=== PATIENT | female | born 1945 | race Native Hawaiian/Other Pacific Islander ===

== ENCOUNTER 2016-10-31 19:40 | Emergency (ER) | payer OTHER ==
[~2016-10-31] VITALS: Ht 165.1 cm; Wt 87.5 kg
[~2016-10-31 19:40] MED LIST: ACCOLATE10 MG PO; ALPR0.2566 PO; CLON1TAB18 PO; EZET10TA13 PO; FERROUS SULF325 M1 PO; ISOS30TA17 PO; LEVO0.0529 PO; NITROSTAT0.4 MG SL; OMEP40CA PO; PRILOSEC20 MG PO; REQUIP1 MG PO; VIIBRYD40 MG PO
[2016-10-31] MEDS ORDERED: CELEXA40 MG PO (20:10)
[2016-10-31] MEDS ORDERED: PANT40TA PO (20:10)
[2016-10-31] MEDS ORDERED: POTASSIUM CHLO20 MEQ PO (20:11)
[2016-10-31] MEDS ORDERED: CLON1TAB18 PO (20:12)
[2016-10-31] MEDS ORDERED: ANTI-GAS180 MG PO (20:13)
[2016-10-31] MEDS ORDERED: MAG6464 MG PO (20:13)
[2016-10-31 20:19] LABS: PLATELET COUNT 216 K/uL (152-353)
[2016-10-31 20:26] LABS: POTASSIUM 3.2 mmol/L (3.6-5.2); SODIUM 135 mmol/L (136-145)
[2016-10-31 20:33] LABS: PARTIAL THROMBOPLASTIN TIME 24.2 SECONDS (24.5-33.6)
[2016-10-31 21:26] VITALS: BP 114/78; TEMP 98.4
== END 2016-10-31 21:27 | disposition home or self-care (01) ==
LOC: ED 19:40 → EDBD 19:40 → ED 21:27
DX: K44.9 Diaphragmatic hernia without obstruction or gangrene (principal); R07.89 Other chest pain
CPT/HCPCS: 36415; 80053; 82550; 84484; 85027; 85610; 85730; 86318; 99283

== ENCOUNTER 2017-02-15 20:49 | Emergency (ER) | payer OTHER ==
[~2017-02-15] VITALS: Ht 165.1 cm; Wt 86.2 kg
[~2017-02-15 20:49] MED LIST changes: +ANTI-GAS180 MG PO; +CELEXA40 MG PO; +MAG6464 MG PO; +PANT40TA PO; +POTASSIUM CHLO20 MEQ PO
[2017-02-15 22:56] LABS: PLATELET COUNT 210 K/uL (152-353)
[2017-02-15 23:05] LABS: POTASSIUM 3.4 mmol/L (3.6-5.2); SODIUM 135 mmol/L (136-145)
[2017-02-15 23:56] VITALS: BP 136/72; TEMP 98.7
== END 2017-02-15 23:57 | disposition home or self-care (01) ==
LOC: EDBD 20:49 → ED 20:49
PROVIDERS: Specialist
DX: K52.89 Other specified noninfective gastroenteritis and colitis (principal)
CPT/HCPCS: 80048; 83735; 84100; 85027; 99284; J3490

== ENCOUNTER 2017-04-16 10:32 | Outpatient (CLI) | payer OTHER | END 2017-04-16 19:06 | disposition home or self-care (01) | LOC: RESP 10:32 | DX: R06.02 Shortness of breath (principal) ==

== ENCOUNTER 2017-05-04 21:59 | Observation (INO) | payer OTHER ==
[~2017-05-04] VITALS: Ht 170.2 cm; Wt 87.6 kg
[2017-05-04 22:10] VITALS: BP 132/73; TEMP 97.8
[2017-05-04 22:27] LABS: PLATELET COUNT 257 K/uL (152-353)
[2017-05-04] MEDS ORDERED: ZANTAC300 MG PO (22:37)
[2017-05-04 22:38] LABS: POTASSIUM 3.5 mmol/L (3.6-5.2); SODIUM 134 mmol/L (136-145)
[2017-05-04] MEDS ORDERED: FLUTICASONE50 MCG (22:38)
[2017-05-04] MEDS ORDERED: MECLIZINE25 MG PO (22:38)
[2017-05-04] MEDS ORDERED: FORTIFY DAILY P1 CAP PO (22:39)
[2017-05-04] MEDS ORDERED: DEXL60CA4 PO (22:39)
[2017-05-04 22:40] LABS: PARTIAL THROMBOPLASTIN TIME 23.7 SECONDS (24.5-33.6)
[2017-05-05 01:10] VITALS: BP 95/52; TEMP 98.6
[2017-05-05 01:30] VITALS: BP 95/52; TEMP 98.6; Ht 170.2 cm; Wt 87.6 kg
[2017-05-05 04:00] VITALS: BP 141/61; TEMP 98.2
--- NOTE | 2017-05-05 06:38 | NUR ---
05/05/17 0030: RECEIVED PT TO ROOM 1109. PT FROM ER BY WHEELCHAIR. DIAGNOSIS OF CHEST PAIN.
[2017-05-05 08:00] VITALS: BP 102/51; TEMP 98.1
[2017-05-05 12:00] VITALS: BP 100/45; TEMP 98.1
--- NOTE | 2017-05-05 16:15 | NUR ---
DC INSTRUCTIONS GIVEN TO PT. PT VERBALIZED UNDERSTANDING. INSTRUCTED PT ON FOLLOW UP APPT. PT VERBALIZED UNDERSTANDING. IV DC'D WITH CANNULA INTACT. SITE CARE PROVIDED
--- NOTE | 2017-05-05 17:11 | NUR ---
PT LEFT VIA WC WITH FAMILY.
== END 2017-05-05 17:25 | disposition home or self-care (01) ==
LOC: ED 21:59 → MED/SURG 23:34
PROVIDERS: ADMIT Specialist
DX: R07.89 Other chest pain (principal); I10 Essential (primary) hypertension; E03.8 Other specified hypothyroidism
CPT/HCPCS: 36415; 80053; 82550; 84443; 84484; 85027; 85610; 85730; 86318; 93005; 96361; 96372; 96374; 99220; 99284; G0378; J1650; J2270

== ENCOUNTER 2017-08-19 16:16 | Outpatient (CLI) | payer OTHER ==
[~2017-08-19 16:16] MED LIST changes: +DEXL60CA4 PO; +FLUTICASONE50 MCG; +FORTIFY DAILY P1 CAP PO; +MECLIZINE25 MG PO; +ZANTAC300 MG PO
[2017-08-19 16:38] LABS: PLATELET COUNT 215 K/uL (152-353)
[2017-08-19 16:51] LABS: POTASSIUM 3.7 mmol/L (3.6-5.2); SODIUM 136 mmol/L (136-145)
== END 2017-08-19 17:20 | disposition home or self-care (01) ==
LOC: LABW 16:16
PROVIDERS: Physician Assistant
DX: R21 Rash and other nonspecific skin eruption (principal); R23.3 Spontaneous ecchymoses
CPT/HCPCS: 36415; 80053; 85027

== ENCOUNTER 2018-02-24 15:31 | Outpatient (CLI) | payer OTHER ==
[2018-02-24 16:09] LABS: PLATELET COUNT 237 K/uL (152-353)
[2018-02-24 16:32] LABS: POTASSIUM 3.5 mmol/L (3.6-5.2)
== END 2018-02-24 22:06 | disposition home or self-care (01) ==
LOC: LABW 15:31 → EDBD 15:31 → LABW 22:06
PROVIDERS: Physician Assistant
DX: F41.1 Generalized anxiety disorder (principal); D51.0 Vitamin B12 deficiency anemia due to intrinsic factor deficiency; F33.1 Major depressive disorder, recurrent, moderate
CPT/HCPCS: 36415; 80053; 82306; 82607; 83735; 84439; 84443; 85027

== ENCOUNTER 2018-05-19 12:26 | Outpatient (CLI) | payer OTHER | END 2018-05-19 19:20 | disposition home or self-care (01) | LOC: LABW 12:26 → EDBD 12:26 → LABW 19:20 | DX: N39.0 Urinary tract infection, site not specified (principal) | CPT/HCPCS: 87088 ==

== ENCOUNTER 2018-06-08 08:26 | Observation (INO) | payer OTHER ==
[~2018-06-08] VITALS: Ht 167.6 cm; Wt 85.5 kg
[2018-06-08 08:19] VITALS: BP 141/70; TEMP 97.45
[2018-06-08 08:47] LABS: PLATELET COUNT 272 K/uL (152-353)
[2018-06-08 08:53] LABS: POTASSIUM 3.1 mmol/L (3.6-5.2); SODIUM 141 mmol/L (136-145)
[2018-06-08 16:14] VITALS: BP 114/50; TEMP 97.8; Ht 167.6 cm; Wt 85.5 kg
[2018-06-08 20:24] VITALS: BP 130/64; TEMP 99
[2018-06-09 00:27] VITALS: BP 125/64; TEMP 98.8
[2018-06-09 05:10] VITALS: BP 126/69; TEMP 98.4
[2018-06-09 06:36] LABS: POTASSIUM 3.7 mmol/L (3.6-5.2)
[2018-06-09 08:00] VITALS: BP 147/72; TEMP 97.6
== END 2018-06-09 09:35 | disposition home or self-care (01) ==
LOC: ED 08:26 → MED/SURG 10:24
PROVIDERS: Family Medicine; ADMIT Internal Medicine
DX: R07.89 Other chest pain (principal); I25.10 Atherosclerotic heart disease of native coronary artery without angina pectoris; E03.8 Other specified hypothyroidism
CPT/HCPCS: 36415; 80048; 80053; 81000; 82550; 83735; 84484; 85027; 93005; 96365; 96367; 99220; 99283; G0378

== ENCOUNTER 2018-08-08 08:10 | Emergency (ER) | payer OTHER ==
[~2018-08-08] VITALS: Ht 167.6 cm; Wt 85.3 kg
[2018-08-08 08:51] LABS: PLATELET COUNT 258 K/uL (152-353)
[2018-08-08 09:10] LABS: POTASSIUM 3.1 mmol/L (3.6-5.2); SODIUM 140 mmol/L (136-145)
[2018-08-08 10:54] VITALS: BP 118/62; TEMP 97.6
== END 2018-08-08 10:58 | disposition home or self-care (01) ==
LOC: ED 08:10
PROVIDERS: Emergency Medicine
DX: R07.89 Other chest pain (principal); E87.6 Hypokalemia; I49.3 Ventricular premature depolarization
CPT/HCPCS: 36415; 80053; 81000; 82550; 84484; 85027; 93005; 96374; 99284; J1885

== ENCOUNTER 2018-08-30 17:04 | Outpatient (CLI) | payer OTHER ==
[2018-08-30 17:35] LABS: POTASSIUM 3.5 mmol/L (3.6-5.2)
== END 2018-08-30 21:27 | disposition home or self-care (01) ==
LOC: LABW 17:04
PROVIDERS: Internal Medicine
DX: E87.6 Hypokalemia (principal)
CPT/HCPCS: 36415; 80048; 83735

== ENCOUNTER 2019-01-18 08:05 | Outpatient (CLI) | payer OTHER | END 2019-01-18 19:41 | disposition home or self-care (01) | LOC: CT 08:05 | DX: R10.84 Generalized abdominal pain (principal) | CPT/HCPCS: 36415; 82565; 84520; Q9963 ==

== ENCOUNTER 2019-02-23 13:42 | Emergency (ER) | payer OTHER ==
[~2019-02-23] VITALS: Ht 165.1 cm; Wt 79.4 kg
[2019-02-23 13:50] VITALS: TEMP 97.9
[2019-02-23 14:50] LABS: PLATELET COUNT 279 K/uL (152-353)
[2019-02-23 15:02] LABS: POTASSIUM 3.9 mmol/L (3.6-5.2); SODIUM 135 mmol/L (136-145)
[2019-02-23 18:00] VITALS: BP 139/49
== END 2019-02-23 18:00 | disposition home or self-care (01) ==
LOC: ED 13:42
PROVIDERS: Emergency Medicine
DX: E86.0 Dehydration (principal)
CPT/HCPCS: 36415; 80053; 81000; 82550; 83735; 84439; 84443; 84484; 85027; 96365; 99284

== ENCOUNTER 2019-05-04 16:15 | Outpatient (CLI) | payer OTHER | END 2019-05-04 23:08 | disposition home or self-care (01) | LOC: LAB 16:15 | DX: R30.0 Dysuria (principal) | CPT/HCPCS: 87077; 87086; 87088; 87186 ==

== ENCOUNTER 2019-05-15 14:27 | Outpatient (CLI) | payer OTHER | END 2019-05-16 05:54 | disposition home or self-care (01) | LOC: US 14:27 | DX: N39.0 Urinary tract infection, site not specified (principal) | CPT/HCPCS: 87086; 87088 ==

== ENCOUNTER 2019-06-15 09:46 | Outpatient (CLI) | payer OTHER ==
[2019-06-15 10:25] LABS: POTASSIUM 3.7 mmol/L (3.6-5.2)
[2019-06-15 10:44] LABS: PLATELET COUNT 285 K/uL (152-353)
== END 2019-06-15 22:35 | disposition home or self-care (01) ==
LOC: LABW 09:46
PROVIDERS: Internal Medicine
DX: E03.8 Other specified hypothyroidism (principal); N39.0 Urinary tract infection, site not specified
CPT/HCPCS: 36415; 80053; 80061; 81000; 84439; 84443; 85027

== ENCOUNTER 2019-09-18 15:15 | Inpatient (IN) | payer OTHER ==
[~2019-09-18] VITALS: Ht 165.1 cm; Wt 82.6 kg
--- NOTE | 2019-09-18 15:14 | NUR ---
PT ARRIVED ON MED-SURG A DIRECT ADMIT FROM SILVIA MAHER. PT WAS BROUGHT A W/C AND TRANSPORTED TO ROOM 1106. ADMISSIONS CAME TO ROOM TO REGISTER PT. PT ORIENTED TO ROOM AND CALL LIGHT. VITALS SIGNS OBTAINED AND PT PLACED IN GOWN. NAD NOTED AND CALL LIGHT WITHIN REACH. WILL CONT TO MONITOR.
[2019-09-18 15:57] VITALS: BP 121/64; TEMP 97.7; Ht 165.1 cm; Wt 82.6 kg
[2019-09-18 16:12] LABS: PLATELET COUNT 218 K/uL (152-353)
[2019-09-18] MEDS ORDERED: MECLIZINE 2525 MG PO (16:29)
[2019-09-18 16:31] LABS: POTASSIUM 3.7 mmol/L (3.6-5.2); SODIUM 136 mmol/L (136-145)
[2019-09-18] MEDS ORDERED: ISOS30TA17 PO (16:31)
[2019-09-18] MEDS ORDERED: CLONAZEP ODT1 MG PO (16:33)
[2019-09-18] MEDS ORDERED: EZET10TA13 PO (16:34)
[2019-09-18] MEDS ORDERED: DICYCLOMINE HYD10 MG PO (16:35)
[2019-09-18] MEDS ORDERED: LAMICTAL100 MG PO (16:38)
[2019-09-18 19:39] VITALS: BP 125/56; TEMP 98.5
[2019-09-19] VITALS (7 sets, daily range): BP systolic 109–139; BP diastolic 53–80; TEMP 98.4–99.4
[2019-09-20 04:04] VITALS: BP 113/58; TEMP 98.6
[2019-09-20 08:00] VITALS: BP 129/54; TEMP 98.4
--- NOTE | 2019-09-20 08:15 | NUR ---
MADE PATIENT AWARE THAT THE STAFF NEEDED TO COLLECT A STOOL SAMPLE. SPECIMEN HAT PROVIDED IN RESTROOM. PATIENT VERBALIZED UNDERSTANDING.
--- NOTE | 2019-09-20 08:55 | NUR ---
PT COMPLAINS OF NAUSEA AT THIS TIME. WILL ADMIN PRN ZOFRAN. NO VOMITING SEEN OR VOICED AT THIS TIME. IV FLUIDS INFUSING WITHOUT DIFFICULTY. WILL CONTINUE TO MONITOR.
--- NOTE | 2019-09-20 11:30 | NUR ---
PT MOVED SPECIMEN HAT IN BATHROOM AND HAD BOWEL MOVEMENT IN COMMODE. RE-EDUCATED PATIENT THAT WE NEEDED A STOOL SAMPLE. PATIENT VERBALIZED UNDERSTANDING.
[2019-09-20 12:00] VITALS: BP 110/60; TEMP 97.4
[2019-09-20 16:00] VITALS: BP 123/54; TEMP 98.2
[2019-09-20 19:56] VITALS: BP 111/66; TEMP 97.9
[2019-09-21] VITALS: BP 141/80; TEMP 97.8
[2019-09-21 03:53] VITALS: BP 125/59; TEMP 98.1
[2019-09-21 08:00] VITALS: BP 132/64; TEMP 98.4
[2019-09-21 12:00] VITALS: BP 107/51; TEMP 98.3
[2019-09-21] MEDS ORDERED: CODELIQ8 PO (15:18)
[2019-09-21] MEDS ORDERED: AZIT250T3 PO (15:19)
[2019-09-21 16:00] VITALS: BP 114/55; TEMP 97.8
--- NOTE | 2019-09-21 17:15 | NUR ---
PATIENT GIVEN DISCHARGE INSTRUCTIONS WITH VERBAL UNDERSTANDING NOTED. PATIENT NOTIFIED THAT HER RX MEDICATIONS WERE SENT TO HER PHARMACY. PATIENT EDUCATED TO TAKE ALL ANTIBIOTICS DIRECTED. PATIENT EDUCATED TO FOLLOW UP WITH HER PCP. PATIENT EDUCATED TO CALL THE HOSPITAL IF SHE HAD ANY QUESTIONS REGARDING HER DISCHARGE INSTRUCTIONS. PATIENTS IV DISCONTINUE TO THE RIGHT WRIST WITH TIP INTACT. PATIENT TOLERATED WELL. THIS NURSE AMBULATED WITH PATIENT TO POV WITHOUT INCIDENT. PATIENT LEFT IN NO ACUTE DISTRESS.
== END 2019-09-21 17:04 | disposition home or self-care (01) | DRG 152 ==
LOC: MED/SURG 15:15
PROVIDERS: ADMIT Family Medicine
DX: J06.9 Acute upper respiratory infection, unspecified (principal); J18.8 Other pneumonia, unspecified organism; K22.70 Barrett's esophagus without dysplasia; E03.8 Other specified hypothyroidism; I10 Essential (primary) hypertension; G25.81 Restless legs syndrome; F41.8 Other specified anxiety disorders; R62.7 Adult failure to thrive; I25.10 Atherosclerotic heart disease of native coronary artery without angina pectoris
CPT/HCPCS: 36415; 80053; 81000; 82550; 83605; 83880; 84484; 85027; 87040; 87502; 87651; 87899; 93005; 94760; 96361; 96365; 96375; J0696; J1885; J2920; J2930

== ENCOUNTER 2019-12-15 10:39 | Emergency (ER) | payer OTHER ==
[~2019-12-15] VITALS: Ht 165.1 cm; Wt 77.6 kg
[~2019-12-15 10:39] MED LIST changes: +AZIT250T3 PO; +CLONAZEP ODT1 MG PO; +CODELIQ8 PO; +DICYCLOMINE HYD10 MG PO; +LAMICTAL100 MG PO; +MECLIZINE 2525 MG PO
[2019-12-15 10:54] VITALS: BP 117/77; TEMP 97
[2019-12-15 11:48] LABS: PLATELET COUNT 220 K/uL (152-353)
[2019-12-15 11:56] LABS: POTASSIUM 3.6 mmol/L (3.6-5.2)
== END 2019-12-15 14:16 | disposition home or self-care (01) ==
LOC: ED 10:39
PROVIDERS: Family Medicine
DX: M79.604 Pain in right leg (principal); M16.0 Bilateral primary osteoarthritis of hip
CPT/HCPCS: 80053; 81000; 85027; 85379; 99283

== ENCOUNTER 2020-04-15 10:07 | Emergency (ER) | payer OTHER ==
[~2020-04-15] VITALS: Ht 165.1 cm; Wt 72.6 kg
[2020-04-15 10:07] VITALS: BP 112/63; TEMP 97.6
[2020-04-15 11:09] LABS: PLATELET COUNT 260 K/uL (152-353)
[2020-04-15 11:14] LABS: POTASSIUM 3.3 mmol/L (3.6-5.2); SODIUM 141 mmol/L (136-145)
== END 2020-04-15 12:15 | disposition home or self-care (01) ==
LOC: ED 10:07
PROVIDERS: Family Medicine
DX: I95.9 Hypotension, unspecified (principal); E86.0 Dehydration
CPT/HCPCS: 80053; 81000; 82550; 82553; 83605; 84484; 85027; 93005; 96360; 99284

== ENCOUNTER 2020-09-19 11:11 | Outpatient (CLI) | payer OTHER | END 2020-09-19 19:03 | disposition home or self-care (01) | LOC: CT 11:11 | PROVIDERS: ATTEND Internal Medicine Gastroenterology | DX: R10.84 Generalized abdominal pain (principal) | CPT/HCPCS: 36415; 82565; 84520; Q9963 ==

== ENCOUNTER 2021-04-30 14:52 | Outpatient (CLI) | payer OTHER | END 2021-04-30 21:42 | disposition home or self-care (01) | LOC: US 14:52 | PROVIDERS: ATTEND Specialist | DX: M79.605 Pain in left leg (principal) ==

== ENCOUNTER 2021-07-31 17:11 | Emergency (ER) | payer OTHER ==
[~2021-07-31] VITALS: Ht 165.1 cm; Wt 72.6 kg
[2021-07-31 17:58] LABS: PLATELET COUNT 243 K/uL (152-353)
[2021-07-31 18:22] LABS: PARTIAL THROMBOPLASTIN TIME 24.1 SECONDS (24.5-33.6)
[2021-07-31 18:29] LABS: POTASSIUM 3.1 mmol/L (3.6-5.2)
[2021-07-31 20:45] VITALS: BP 132/77; TEMP 97.5
== END 2021-07-31 20:55 | disposition home or self-care (01) ==
LOC: ED 17:11
PROVIDERS: Emergency Medicine
DX: E87.6 Hypokalemia (principal); R42 Dizziness and giddiness; R53.81 Other malaise; R06.02 Shortness of breath; R07.89 Other chest pain; G89.29 Other chronic pain
CPT/HCPCS: 80053; 81000; 83880; 84484; 85027; 85379; 85610; 85730; 93005; 96360; 96365; 99284

== ENCOUNTER 2021-08-08 13:59 | Observation (INO) | payer OTHER ==
[~2021-08-08] VITALS: Ht 165.1 cm; Wt 78.5 kg
[2021-08-08 15:23] LABS: PLATELET COUNT 244 K/uL (152-353)
[2021-08-08 18:06] VITALS: BP 116/77; TEMP 98.6; Ht 165.1 cm; Wt 78.5 kg
[2021-08-08] MEDS ORDERED: ONDA4TAB3 PO (18:57)
[2021-08-08] MEDS ORDERED: POTASSIUM CHLO20 ME1 PO (18:58)
[2021-08-08] MEDS ORDERED: CALCIUM600 M2 PO (18:59)
[2021-08-08] MEDS ORDERED: MAG OXIDE400 MG PO (19:00)
[2021-08-08] MEDS ORDERED: ANTIHISTAMIN25 MG PO (19:01)
[2021-08-08] MEDS ORDERED: ROPINIROLE HYDRO1 MG PO (19:02)
[2021-08-08] MEDS ORDERED: FAMOTIDINE40 MG PO (19:04)
[2021-08-08] MEDS ORDERED: NITR0.4S2 SL (19:05)
[2021-08-08] MEDS ORDERED: MECLIZINE25 MG PO (19:06)
[2021-08-08] MEDS ORDERED: DEXILANT60 M1 PO (19:06)
[2021-08-08] MEDS ORDERED: EZETIMIBE10 MG PO (19:07)
[2021-08-08] MEDS ORDERED: TIROSINT50 MCG PO (19:08)
[2021-08-08] MEDS ORDERED: ISOSORB MONO20 MG PO (19:09)
[2021-08-08] MEDS ORDERED: ESCITALOPRAM10 MG PO (19:10)
[2021-08-08] MEDS ORDERED: CLON1TAB18 PO (19:10)
[2021-08-08 20:26] VITALS: BP 126/62; TEMP 97.9
[2021-08-08 23:52] VITALS: BP 121/56; TEMP 98.7
[2021-08-09 04:17] VITALS: BP 115/39; TEMP 97.5
[2021-08-09 08:00] VITALS: BP 98/53; TEMP 98.3
[2021-08-09 11:21] LABS: PLATELET COUNT 195 K/uL (152-353)
[2021-08-09 11:44] LABS: POTASSIUM 4.4 mmol/L (3.6-5.2)
[2021-08-09 12:00] VITALS: BP 98/53; TEMP 98.3
== END 2021-08-09 15:10 | disposition home or self-care (01) ==
LOC: MED/SURG 13:59
PROVIDERS: ADMIT Family Medicine; ATTEND Family Medicine
DX: J18.8 Other pneumonia, unspecified organism (principal); Z20.828 Contact with and (suspected) exposure to other viral communicable diseases; I10 Essential (primary) hypertension; E03.8 Other specified hypothyroidism; E87.6 Hypokalemia; R06.09 Other forms of dyspnea
CPT/HCPCS: 36415; 80053; 82550; 83735; 83880; 84100; 84443; 84484; 85027; 85379; 87040; 87077; 87185; 87186; 87205; 87635; 90686; 93005; 94640; 94664; 94760; 96360; 96366; 96367; 99220; G0378; G0379; J0456; J0696; J2405; U0003

== ENCOUNTER 2021-09-01 15:38 | Outpatient (CLI) | payer OTHER ==
[~2021-09-01 15:38] MED LIST changes: +ANTIHISTAMIN25 MG PO; +CALCIUM600 M2 PO; +DEXILANT60 M1 PO; +ESCITALOPRAM10 MG PO; +EZETIMIBE10 MG PO; +FAMOTIDINE40 MG PO; +ISOSORB MONO20 MG PO; +MAG OXIDE400 MG PO; +NITR0.4S2 SL; +ONDA4TAB3 PO; +POTASSIUM CHLO20 ME1 PO; +ROPINIROLE HYDRO1 MG PO; +TIROSINT50 MCG PO
== END 2021-09-01 21:52 | disposition home or self-care (01) ==
LOC: RAD 15:38
PROVIDERS: ATTEND Nurse Practitioner Primary Care
DX: M25.561 Pain in right knee (principal)

== ENCOUNTER 2021-09-24 13:23 | Outpatient (CLI) | payer OTHER | END 2021-09-24 20:28 | disposition home or self-care (01) | LOC: RAD 13:23 | PROVIDERS: ATTEND Neurological Surgery | DX: M54.42 Lumbago with sciatica, left side (principal) ==

== ENCOUNTER 2021-10-21 09:39 | Emergency (ER) | payer OTHER ==
[~2021-10-21] VITALS: Ht 165.1 cm; Wt 73.5 kg
[2021-10-21 09:47] VITALS: TEMP 98.7
[2021-10-21 10:21] LABS: PLATELET COUNT 215 K/uL (152-353)
[2021-10-21 10:25] LABS: POTASSIUM 3.6 mmol/L (3.6-5.2)
[2021-10-21 11:30] VITALS: BP 110/52
== END 2021-10-21 11:30 | disposition home or self-care (01) ==
LOC: ED 09:39
PROVIDERS: Hospitalist
DX: R11.2 Nausea with vomiting, unspecified (principal); E86.0 Dehydration; N30.80 Other cystitis without hematuria
CPT/HCPCS: 36415; 80053; 81000; 83690; 84484; 85027; 93005; 96360; 96365; 96375; 99284; J0696; J2405

== ENCOUNTER 2021-11-06 13:02 | Outpatient (CLI) | payer OTHER | END 2021-11-06 19:13 | disposition home or self-care (01) | LOC: MAMMO 13:02 | PROVIDERS: ATTEND Family Medicine | DX: Z00.00 Encounter for general adult medical examination without abnormal findings (principal); Z13.820 Encounter for screening for osteoporosis; Z12.31 Encounter for screening mammogram for malignant neoplasm of breast; N95.8 Other specified menopausal and perimenopausal disorders ==

== ENCOUNTER 2021-11-14 02:45 | Emergency (ER) | payer OTHER ==
[~2021-11-14] VITALS: Ht 165.1 cm; Wt 72.1 kg
[2021-11-14 03:12] LABS: PLATELET COUNT 298 K/uL (152-353)
[2021-11-14 03:18] LABS: POTASSIUM 3.4 mmol/L (3.6-5.2)
[2021-11-14 03:32] LABS: PARTIAL THROMBOPLASTIN TIME 23.8 SECONDS (24.5-33.6)
[2021-11-14 06:20] VITALS: BP 148/71; TEMP 97.6
== END 2021-11-14 06:37 | disposition home or self-care (01) ==
LOC: ED 02:45
PROVIDERS: Emergency Medicine
DX: A09 Infectious gastroenteritis and colitis, unspecified (principal); R10.84 Generalized abdominal pain
CPT/HCPCS: 80053; 81000; 85027; 85610; 85730; 96365; 96375; 99284; J2270; J2405; J3490

== ENCOUNTER 2021-12-14 19:44 | Emergency (ER) | payer OTHER ==
[~2021-12-14] VITALS: Ht 165.1 cm; Wt 68.0 kg
[2021-12-14 21:15] LABS: PLATELET COUNT 219 K/uL (152-353)
[2021-12-14 21:24] LABS: POTASSIUM 3.6 mmol/L (3.6-5.2)
[2021-12-14 23:55] VITALS: BP 124/77; TEMP 97.1
== END 2021-12-14 23:55 | disposition home or self-care (01) ==
LOC: ED 19:44
PROVIDERS: Emergency Medicine Emergency Medical Services
DX: E86.0 Dehydration (principal)
CPT/HCPCS: 36415; 80053; 81000; 83735; 84484; 85027; 93005; 96360; 96375; 99284; J2405

== ENCOUNTER 2021-12-16 09:10 | Outpatient (CLI) | payer OTHER ==
[~2021-12-16] VITALS: Ht 165.1 cm; Wt 70.3 kg
== END 2021-12-16 19:03 | disposition home or self-care (01) ==
LOC: NM 09:10
PROVIDERS: ATTEND Specialist
DX: R06.09 Other forms of dyspnea (principal); R00.2 Palpitations; I25.10 Atherosclerotic heart disease of native coronary artery without angina pectoris; I10 Essential (primary) hypertension
CPT/HCPCS: A9500; J2785

== ENCOUNTER 2022-05-08 11:03 | Outpatient (CLI) | payer OTHER ==
[2022-05-08 11:37] LABS: PLATELET COUNT 292 K/uL (152-353)
[2022-05-08 11:41] LABS: POTASSIUM 3.5 mmol/L (3.6-5.2)
== END 2022-05-08 19:04 | disposition home or self-care (01) ==
LOC: RESP 11:03 → LABW 11:03
PROVIDERS: ATTEND Neurological Surgery
DX: Z01.818 Encounter for other preprocedural examination (principal); M47.27 Other spondylosis with radiculopathy, lumbosacral region; Z79.01 Long term (current) use of anticoagulants; Z11.52 Encounter for screening for COVID-19
CPT/HCPCS: 36415; 80048; 85027; 87635; 93005; G2023; U0003

== ENCOUNTER 2022-06-10 09:07 | Emergency (ER) | payer OTHER ==
[~2022-06-10] VITALS: Ht 165.1 cm; Wt 70.3 kg
[2022-06-10 09:13] VITALS: TEMP 98
[2022-06-10 10:00] LABS: PLATELET COUNT 302 K/uL (152-353)
[2022-06-10] MEDS ORDERED: ONDA4TAB3 PO (10:24)
[2022-06-10 10:41] VITALS: BP 126/53
== END 2022-06-10 10:41 | disposition home or self-care (01) ==
LOC: ED 09:07
PROVIDERS: Emergency Medicine Emergency Medical Services
DX: R11.2 Nausea with vomiting, unspecified (principal); R51.9 Headache, unspecified; E03.8 Other specified hypothyroidism; K44.9 Diaphragmatic hernia without obstruction or gangrene; Z20.822 Contact with and (suspected) exposure to COVID-19
CPT/HCPCS: 80053; 81002; 82150; 83690; 84443; 85027; 87635; 96360; 96374; 96375; 99284; J2405; J3490; U0003

== ENCOUNTER 2022-07-18 19:57 | Emergency (ER) | payer OTHER ==
[~2022-07-18] VITALS: Ht 165.1 cm; Wt 67.1 kg
[2022-07-18 20:56] LABS: PLATELET COUNT 280 K/uL (152-353)
[2022-07-18 21:01] LABS: POTASSIUM 4.2 mmol/L (3.6-5.2)
[2022-07-18 21:13] LABS: PARTIAL THROMBOPLASTIN TIME 24.3 SECONDS (24.5-33.6)
[2022-07-18 21:57] VITALS: BP 114/64; TEMP 98.5
== END 2022-07-18 21:58 | disposition home or self-care (01) ==
LOC: ED 19:57
PROVIDERS: Family Medicine
DX: R51.9 Headache, unspecified (principal); R42 Dizziness and giddiness; R06.02 Shortness of breath; Z79.899 Other long term (current) drug therapy
CPT/HCPCS: 80053; 80307; 81000; 82550; 84484; 85027; 85610; 85730; 93005; 99283

== ENCOUNTER 2023-07-03 06:28 | Outpatient (CLI) | payer OTHER | END 2023-07-03 23:15 | disposition home or self-care (01) | LOC: LAB 06:28 | PROVIDERS: ATTEND Internal Medicine | DX: Z13.0 Encounter for screening for diseases of the blood and blood-forming organs and certain disorders involving the immune mechanism (principal); Z16.24 Resistance to multiple antibiotics | CPT/HCPCS: 87081 ==